=== PATIENT | female | born 1965 | race Caucasian/White ===

== ENCOUNTER 2018-10-26 13:25 | Emergency (ER) | payer BC, SELFPAY ==
--- NOTE | 2018-10-26 13:39 | NUR.NOTE ---
when pt woke up 0600 she noticed that she had swollen lips. as day progressed swelling has progressed. however swelling has remained in upper lip. pt denies any SOB, or swelling in her airway
[2018-10-26 13:40] VITALS: BP 162/98; PULSE 64; RESP 13; TEMP 36.5; O2SAT 98
[2018-10-26] MEDS: methylPREDNISolone SUCC 125 MG VIAL IVP (15:54)
[2018-10-26] MEDS: diphenhydrAMINE 50 MG/ML VIAL IVP (15:55)
--- NOTE | 2018-10-26 16:19 | W.ED.GENAD ---
Discharge Plan Disposition Patient Disposition: HOME Discharge Details Chief Complaint: GenMedical Clinical Impression: Angioedema Primary Care Provider: Jessica Norwood ED Provider: Prashant Hager Home Meds and New Rx's Prescriptions: New prednisone 20 mg tablet 40 mg PO DAILY Qty: 8 RF: 0 Continued metoprolol succinate 25 MG tablet extended release 24 hr 25 mg PO DAILY RF: 0 LAMISIL 15 GM CREAM..G. 15 gm Topical BID RF: 0 Discontinued lisinopril 10 MG tablet 10 mg PO DAILY RF: 0 Discharge Instructions Instructions: Angioedema (ED) Additional Instructions: Please stop taking lisinopril. Call your doctor tomorrow to discuss new antihypertensive medication. Take prednisone as prescribed. Take Benadryl 25 mg every 8 hours for the next three days. Please contact your primary care physician to arrange follow-up. Return to the ER immediately for any worsening or new concerning symptoms. Referrals: Jessica Norwood MD [Primary Care Provider] - Medical Decision Making 16:00 -- 53-year-old female with history of hypertension, on lisinopril, here with swelling of her upper lip. Concerned about localized angioedema. Airway is currently intact. Given fairly rapid onset today, plan to treat with Benadryl, Solu-Medrol and FFP. Plan to observe in ED and monitor for stability and improvement of condition. -- While waiting for FFP to thaw, patient reassessed and symptoms improving. Decision made to cancel FFP given clinical improvement. 18:10 -- Patient reassessed: swelling improved, patient notes subjectively has improved by 70% since arrival. Disposition decision was made weighing the risks and benefits of hospitalization versus outpatient treatment, the risk for further decompensation, and the patient's wishes. The patient was stable and requested discharge. Prior to discharge, my usual and customary return precautions were reviewed with the patient - this included follow-up instructions and reason to return to the emergency department if condition worsens, does not improve as expected, or other new concerns arise. HPI General Mode of arrival: ambulatory. Date/Time Provider Initiated Documentation: 10/26/18 14:59. Limitations to Documentation: no limitations. Information obtained by: patient. HPI Narrative: 53-year-old female with history of hypertension on lisinopril here with chief complaint of lip swelling. Patient notes that she woke up this morning and felt as though her upper lip was chapped. She went skiing and sometime this morning noticed that her lip started to swell. Swelling has persisted and worsened. Swelling is localized to her upper lip. She denies any associated swelling of her tongue, throat, or mouth. Swelling is moderate. No modifiers. No associated rash. No exposure to any allergens. Related Data Home Medications Medication Instructions Recorded Confirmed Lamisil 15 gm TOPICAL BID script NS 10/27/13 10/26/18 metoprolol succinate 25 mg PO DAILY tab-cap NS 10/27/13 10/26/18 prednisone 40 mg PO DAILY #8 tab 10/26/18 Previous Rx's Medication Instructions Recorded prednisone 40 mg PO DAILY #8 tab 10/26/18 Allergies Allergy/AdvReac Type Severity Reaction Status Date / Time No Known Allergies Allergy Unverified 10/27/13 13:27 General Stated Complaint: GenMedical LORENE: 4 Review of Systems Review of Systems All systems reviewed & are unremarkable except as noted in HPI and below PFSH Social History Smoking and Tabacco status: Current every day Exam Const General: cooperative and no acute distress HENWV Head: normocephalic and atraumatic Mouth: moist mucous membranes, lip abnormal (upper lid swollen), no muffled voice and other (tongue nl) Throat: posterior oropharynx normal Eyes Conjunctivae: normal conjunctivae Sclera: normal sclerae EOM: EOM intact bilaterally Neck Neck: trachea midline and supple Resp Auscultation: clear to auscultation bilaterally, no rales, no rhonchi and no wheezes Cardio Jugular venous pressure: no JVD Rate: regular rate and not tachycardic Rhythm: regular rhythm GI Palpation: soft, not firm, no guarding, no masses, not rigid and nontender Skin General skin exam: no rashes or lesions noted Neuro General: alert, awake, oriented x3 and tone normal Extrem General: no edema Psych Appearance: grossly normal Mental Status: mental status grossly normal Speech and Movement: speech and movement normal Course Vital Signs Temperature 36.5 C 10/26/18 13:40 Pulse 64 10/26/18 13:40 Respiratory Rate 13 10/26/18 13:40 Blood Pressure 162/98 H 10/26/18 13:40 Pulse Oximetry 98 10/26/18 13:40 Temperature 36.5 C 10/26/18 13:40 Temperature Source Skin 10/26/18 13:40 Pulse 64 10/26/18 13:40 Respiratory Rate 13 10/26/18 13:40 Respiratory Effort 10/26/18 15:59 Respiratory Depth Normal 10/26/18 15:59 Respiratory Pattern Normal 10/26/18 15:59 Blood Pressure 162/98 H 10/26/18 13:40 Blood Pressure Position Sitting 10/26/18 13:40 Pulse Oximetry 98 10/26/18 13:40 Oxygen Delivery Method Room Air 10/26/18 13:40 Oxygen Flow Rate 0 10/26/18 13:40 Pain Level 4 10/26/18 13:40
--- NOTE | 2018-10-26 16:24 | ED.GENADUL_ITS ---
Discharge Plan Disposition Patient Disposition: HOME Discharge Details Chief Complaint: GenMedical Clinical Impression: Angioedema Primary Care Provider: Jessica Norwood ED Provider: Prashant Hager Home Meds and New Rx's Prescriptions: New prednisone 20 mg tablet 40 mg PO DAILY Qty: 8 RF: 0 Continued metoprolol succinate 25 MG tablet extended release 24 hr 25 mg PO DAILY RF: 0 LAMISIL 15 GM CREAM..G. 15 gm Topical BID RF: 0 Discontinued lisinopril 10 MG tablet 10 mg PO DAILY RF: 0 Discharge Instructions Instructions: Angioedema (ED) Additional Instructions: Please stop taking lisinopril. Call your doctor tomorrow to discuss new antihypertensive medication. Take prednisone as prescribed. Take Benadryl 25 mg every 8 hours for the next three days. Please contact your primary care physician to arrange follow-up. Return to the ER immediately for any worsening or new concerning symptoms. Referrals: Jessica Norwood MD [Primary Care Provider] - Medical Decision Making 16:00 -- 53-year-old female with history of hypertension, on lisinopril, here with swelling of her upper lip. Concerned about localized angioedema. Airway is currently intact. Given fairly rapid onset today, plan to treat with Benadryl, Solu-Medrol and FFP. Plan to observe in ED and monitor for stability and improvement of condition. -- While waiting for FFP to thaw, patient reassessed and symptoms improving. Decision made to cancel FFP given clinical improvement. 18:10 -- Patient reassessed: swelling improved, patient notes subjectively has improved by 70% since arrival. Disposition decision was made weighing the risks and benefits of hospitalization versus outpatient treatment, the risk for further decompensation, and the patient's wishes. The patient was stable and requested discharge. Prior to discharge, my usual and customary return precautions were reviewed with the patient - this included follow-up instructions and reason to return to the emergency department if condi tion worsens, does not improve as expected, or other new concerns arise. HPI General Mode of arrival: ambulatory . Date/Time Provider Initiated Documentation: 10/26/18 14:59 . Limitations to Documentation: no limitations . Information obtained by: patient . HPI Narrative: 53-year-old female with history of hypertension on lisinopril here with chief complaint of lip swelling. Patient notes that she woke up this morning and felt as though her upper lip was chapped. She went skiing and sometime this morning noticed that her lip started to swell. Swelling has persisted and worsened. Swelling is localized to her upper lip. She denies any associated swelling of her tongue, throat, or mouth. Swelling is moderate. No modifiers. No associated rash. No exposure to any allergens. Related Data Home Medications Medication Instructions Recorded Confirmed Lamisil 15 gm TOPICAL BID script NS 10/27/13 10/26/18 metoprolol succinate 25 mg PO DAILY tab-cap NS 10/27/13 10/26/18 prednisone 40 mg PO DAILY #8 tab 10/26/18 Previous Rx's Medication Instructions Recorded prednisone 40 mg PO DAILY #8 tab 10/26/18 Allergies Allergy/AdvReac Type Severity Reaction Status Date / Time No Known Allergies Allergy Unverified 10/27/13 13:27 General Stated Complaint: GenMedical LORENE: 4 Review of Systems Review of Systems All systems reviewed & are unremarkable except as noted in HPI and below PFSH Social History Smoking and Tabacco status: Current every day Exam Const General: cooperative and no acute distress HENOR Head: normocephalic and atraumatic Mouth: moist mucous membranes, lip abnormal (upper lid swollen), no muffled voice and other (tongue nl) Throat: posterior oropharynx normal Eyes Conjunctivae: normal conjunctivae Sclera: normal sclerae EOM: EOM intact bilaterally Neck Neck: trachea midline and supple Resp Auscultation: clear to auscultation bilaterally, no rales, no rhonchi and no wheezes Cardio Jugular venous pressure: no JVD Rate: regular rate and not tachycardic Rhythm: regular rhythm GI Palpation: soft, not firm, no guarding, no masses, not rigid and nontender Skin General skin exam: no rashes or lesions noted Neuro General: alert, awake, oriented x3 and tone normal Extrem General: no edema Psych Appearance: grossly normal Mental Status: mental status grossly normal Speech and Movement: speech and movement normal Course Vital Signs Temperature 36.5 C 10/26/18 13:40 Pulse 64 10/26/18 13:40 Respiratory Rate 13 10/26/18 13:40 Blood Pressure 162/98 H 10/26/18 13:40 Pulse Oximetry 98 10/26/18 13:40 Temperature 36.5 C 10/26/18 13:40 Temperature Source Skin 10/26/18 13:40 Pulse 64 10/26/18 13:40 Respiratory Rate 13 10/26/18 13:40 Respiratory Effort 10/26/18 15:59 Respiratory Depth Normal 10/26/18 15:59 Respiratory Pattern Normal 10/26/18 15:59 Blood Pressure 162/98 H 10/26/18 13:40 Blood Pressure Position Sitting 10/26/18 13:40 Pulse Oximetry 98 10/26/18 13:40 Oxygen Delivery Method Room Air 10/26/18 13:40 Oxygen Flow Rate 0 10/26/18 13:40 Pain Level 4 10/26/18 13:40
--- NOTE | 2018-10-26 16:42 | NUR.NOTE ---
pt stated that her swelling is almost back to normal and she is sitting up0 smiling able to show her teeth and stick her tongue out without problems and is able to talker without problems Nursing Note:
[2018-10-26 17:07] VITALS: BP 137/77; PULSE 57; RESP 16; O2SAT 96
--- NOTE | 2018-10-26 17:32 | NUR.NOTE ---
hold placed on ffp by er doctor Nursing Note:
[2018-10-26 17:34] VITALS: BP 143/79; PULSE 56; RESP 16; O2SAT 96
[2018-10-26 18:16] VITALS: BP 139/71; PULSE 61; RESP 16; O2SAT 96
[2018-10-26 18:30] VITALS: BP 139/71; PULSE 61; RESP 16; TEMP 36.5; O2SAT 96
== END 2018-10-26 18:32 | disposition home or self-care (01) ==
PROVIDERS: Emergency Provider Student in an Organized Health Care Education/Training Program; PCP Family Medicine
DX: T78.3XXA Angioneurotic edema, initial encounter (principal); T46.4X5A Adverse effect of angiotensin-converting-enzyme inhibitors, initial encounter; I10 Essential (primary) hypertension
CPT/HCPCS: 86900; 86901; 96374; 96375; 99284; J1200; J2930

== ENCOUNTER 2018-11-11 10:25 | Outpatient (REF) | payer BC, SELFPAY ==
[2018-11-11 13:51] LABS: HCT 40.4 % (36.0-46.0); Mean Corp. HGB Concentration 34.7 g/dL (32.0-36.0); Mean Corpuscular Volume 98.1 fL (80-95); Mean Platelet Volume 11.7 fL (8.0-11.0); Platelet Count 285 x1000/uL (130-400); RBC 4.12 m/cumm (4.00-5.20); RBC Distribution Width 12.1 % (11.7-14.6); White Blood Cell Count 6.94 k/cumm (4.4-10.8)
[2018-11-11 14:13] LABS: Anion Gap 9.6 mmol/L (3-11); BUN 20 mg/dL (7-18); CO2 29.4 mmol/L (21.0-32.0); Calcium 9.9 mg/dL (8.5-10.1); Chloride 100 mmol/L (98-107); Glucose 93 mg/dL (70-100); Potassium 3.6 mmol/L (3.5-5.1); Sodium 139 mmol/L (136-145); TSH (W/Ref FT4) 0.76 uIU/mL (0.358-3.74)
== END 2018-11-11 10:45 ==
LOC: NCHCN 10:25
PROVIDERS: PCP Family Medicine; Visit Provider Family Medicine
DX: Z00.00 Encounter for general adult medical examination without abnormal findings (principal); I10 Essential (primary) hypertension
CPT/HCPCS: 80048; 85027; 84443

== ENCOUNTER 2019-03-20 01:55 | Outpatient (CLI) | payer BC, SELFPAY ==
[2019-03-20 07:44] LABS: HCT 38.5 % (36.0-46.0); HGB 13.5 g/dL (12.0-15.5); Mean Corp. HGB Concentration 35.1 g/dL (32.0-36.0); Mean Corpuscular Hemoglobin 34.1 pg (27.0-33.0); Mean Corpuscular Volume 97.2 fL (80-95); Mean Platelet Volume 10.6 fL (8.0-11.0); Platelet Count 281 x1000/uL (130-400); RBC 3.96 m/cumm (4.00-5.20); RBC Distribution Width 12.7 % (11.7-14.6); White Blood Cell Count 6.66 k/cumm (4.4-10.8)
[2019-03-20 09:20] LABS: Anion Gap 11.6 mmol/L (3-11); BUN 14 mg/dL (7-18); CO2 28.4 mmol/L (21.0-32.0); CREATININE 1.01 mg/dL (0.55-1.02); Calcium 9.5 mg/dL (8.5-10.1); Chloride 102 mmol/L (98-107); Estimated GFR 56.91 (mL/min/1.73m2); Glucose 96 mg/dL (70-100); Potassium 3.8 mmol/L (3.5-5.1); Sodium 142 mmol/L (136-145); Vitamin B12 1077 pg/mL (193-986)
[2019-03-20 09:27] LABS: Folate > 20.0 ng/mL (8.6-20.0)
== END 2019-03-20 02:15 ==
PROVIDERS: PCP Family Medicine; Visit Provider Family Medicine
DX: H53.2 Diplopia (principal); I10 Essential (primary) hypertension; D75.89 Other specified diseases of blood and blood-forming organs
CPT/HCPCS: 36415; 80048; 85027; 82607; 82746; 83519

== ENCOUNTER 2019-04-14 00:45 | Outpatient (CLI) | payer BC, SELFPAY ==
--- NOTE | 2019-04-14 13:13 | DI.MAMMO_ITS ---
SYMPTOM/DIAGNOSIS: SCREENING, Z12.31 MAMMOGRAMS: Mammograms were interpreted according to the usual protocol including computer analysis with CAD system, tomosynthesis and C view imaging. Comparison is made with exams from [id number]. The breasts are composed of scattered fibroglandular densities, breast density, Category B. No suspicious masses or suspicious microcalcifications are seen. There has been no significant change in benign appearing calcifications in the central right breast. IMPRESSION: Category 2, negative mammogram with benign findings. Yearly screening mammography is recommended. MQSA ASSESSMENT OF FINDINGS: Negative with benign findings. Category 2. Patient will receive a letter notifying them of these results. BI-RADS category B. There are scattered areas of fibroglandular density.
== END 2019-04-14 01:05 ==
PROVIDERS: PCP Family Medicine; Visit Provider Family Medicine
DX: Z12.31 Encounter for screening mammogram for malignant neoplasm of breast (principal)
CPT/HCPCS: 77063; 77067

== ENCOUNTER 2020-02-25 15:06 | Outpatient (REF) | payer BC, SELFPAY ==
[2020-02-25 18:43] LABS: HCT 39.1 % (36.0-46.0); HGB 13.9 g/dL (12.0-15.5); Mean Corp. HGB Concentration 35.5 g/dL (32.0-36.0); Mean Corpuscular Hemoglobin 34.3 pg (27.0-33.0); Mean Corpuscular Volume 96.5 fL (80-95); Mean Platelet Volume 11.2 fL (8.0-11.0); Platelet Count 320 x1000/uL (130-400); RBC 4.05 m/cumm (4.00-5.20); RBC Distribution Width 12.2 % (11.7-14.6); White Blood Cell Count 7.41 k/cumm (4.4-10.8)
[2020-02-25 18:52] LABS: ALT 36 U/L (14-59); AST 26 U/L (15-37); Albumin 4.2 g/dL (3.4-5.0); Alkaline Phosphatase 140 U/L (46-116); Anion Gap 10.5 mmol/L (3-11); BUN 15 mg/dL (7-18); Bilirubin, Total 0.5 mg/dL (0.2-1.0); CO2 27.5 mmol/L (21.0-32.0); CREATININE 0.84 mg/dL (0.55-1.02); Calcium 9.5 mg/dL (8.5-10.1); Chloride 102 mmol/L (98-107); Glucose 99 mg/dL (74-106); Potassium 3.4 mmol/L (3.5-5.1); Sodium 140 mmol/L (136-145); Total Protein 7.4 g/dL (6.4-8.2)
== END 2020-02-25 15:26 ==
LOC: NCHCN 15:06
PROVIDERS: PCP Family Medicine; Visit Provider Family Medicine
DX: I10 Essential (primary) hypertension (principal)
CPT/HCPCS: 80053; 85027

== ENCOUNTER 2020-07-16 04:24 | Outpatient (CLI) | payer BC, SELFPAY ==
--- NOTE | 2020-07-16 14:50 | DI.MAMMO_ITS ---
EXAM: MAMMO SCREENING CLINICAL HISTORY: SCREENING,Z12.31 TECHNIQUE: Mammograms were interpreted according to the usual protocol including computer analysis w [employer] CAD system, tomosynthesis and C-view imaging. COMPARISON: FINDINGS: The breasts are of moderate density with fairly symmetrical distribution of fibroglandular tissue. N o dominant mass or clumped microcalcification is identified in either breast. The current examinatio n is compared with previous examinations including April 2019 and there has been no gross interval c hange in appearance in comparison with the prior studies. IMPRESSION: No specific evidence of malignancy at this time. Routine screening examinations are suggested at yea rly intervals due to the family history of breast carcinoma. BI-RADS Category 1 - Negative Breast Density - Category B - Scattered areas of fibroglandular density
== END 2020-07-16 04:44 ==
PROVIDERS: PCP Family Medicine; Visit Provider Family Medicine
DX: Z12.31 Encounter for screening mammogram for malignant neoplasm of breast (principal)
CPT/HCPCS: 77063; 77067

== ENCOUNTER 2021-07-19 04:15 | Outpatient (CLI) | payer BC, SELFPAY ==
[2021-07-20 08:48] LABS: BUN 12 mg/dL (7-18); CREATININE 0.8 mg/dL (0.55-1.02); Calcium 9.5 mg/dL (8.5-10.1); Calculated LDL 110 mg/dL (<100); Chloride 103 mmol/L (98-107); Cholesterol 240 mg/dL (<200); Glucose 92 mg/dL (74-106); HDL Cholesterol 78 mg/dL (40-60); Potassium 3.7 mmol/L (3.5-5.1); Sodium 142 mmol/L (136-145); Triglyceride 261 mg/dL (<150)
[2021-07-20 08:49] LABS: Anion Gap 12.7 mmol/L (3-11); CO2 26.3 mmol/L (21.0-32.0)
== END 2021-07-19 04:16 | disposition home or self-care (01) ==
LOC: LBO 04:15
PROVIDERS: PCP Family Medicine; Visit Provider Family Medicine
DX: I10 Essential (primary) hypertension (principal); Z13.220 Encounter for screening for lipoid disorders; Z00.00 Encounter for general adult medical examination without abnormal findings
CPT/HCPCS: 36415; 80048; 80061

== ENCOUNTER 2021-08-11 00:13 | Outpatient (CLI) | payer BC, SELFPAY ==
--- NOTE | 2021-08-11 15:51 | DI.MAMMO_ITS ---
Exam(s) MAMMO SCREENING EXAM: MAMMO SCREENING CLINICAL HISTORY: SCREENING MAMMO FOR BREAST CANCER Z12.31. TECHNIQUE: Bilateral full field digital CC and MLO mammographic images were obtained with 3D tomosyn thesis and utilizing computer aided detection (CAD). COMPARISON: Prior mammograms dating back to 2011, the most recent being July 2020. Significant family history. Her mother was diagnosed with breast cancer in her 60s. FINDINGS: There are no new spiculated masses nor malignant appearing microcalcification groups. There is no significant architectural distortion nor skin thickening-retraction. IMPRESSION: No radiographic evidence of malignancy. BI-RADS Category 1 - Negative Breast Density - Category B - Scattered areas of fibroglandular density Breast density Category C or D implies that the patient has dense breast tissue. Dense breast tissue can make it harder to find cancer on a mammogram. Dense breast tissue is also associated with an incr eased risk of breast cancer. This information about the result of the mammogram report was provided to the patient to raise their awareness. Use this report when you speak with the patient about their risks for breast cancer, which includes their family history. At that time, you may recommend additional screening tests (Ultrasoun d or MRI) as these tests may add significant information. A negative radiographic report should not delay biopsy if a dominant or clinically suspicious mass is present. Up to ten percent of cancers are not identified on mammography. A negative report may reinforce clinical impression. Adenosis and dense breasts may obscure an underlying neoplasm. False positive reports average 6 to 10%. Patient will receive a letter notifying them of these results.
== END 2021-08-11 00:33 ==
PROVIDERS: PCP Family Medicine; Visit Provider Family Medicine
DX: Z12.31 Encounter for screening mammogram for malignant neoplasm of breast (principal)
CPT/HCPCS: 77063; 77067

== ENCOUNTER 2022-07-26 15:59 | Outpatient (CLI) | payer OTHER, SELFPAY ==
[2022-07-26 12:54] LABS: HCT 37.1 % (36.0-46.0); HGB 13.1 g/dL (11.2-15.7); MCH 34.4 pg (27.0-33.0); MCHC 35.3 % (32.0-36.0); MCV 97 fL (80-95); MPV 10.2 fL (8.0-11.0); Platelet Count 305 10^3/uL (130-400); RBC 3.81 10^6/uL (3.93-5.22); RDW 12.3 % (11.7-14.6); RDW-SD 44.5 fL; WBC 8.07 10^3/uL (4.4-10.8)
[2022-07-26 13:03] LABS: Anion Gap 7.6 mmol/L (3-11); BUN 12 mg/dL (7-18); CO2 28.4 mmol/L (21.0-32.0); CREATININE 0.7 mg/dL (0.55-1.02); Calcium 9.4 mg/dL (8.5-10.1); Chloride 102 mmol/L (98-107); Estimated GFR 99.57 (mL/min/1.73m2); Glucose 100 mg/dL (74-106); Potassium 3.1 mmol/L (3.5-5.1); Sodium 138 mmol/L (136-145)
== END 2022-07-26 16:00 | disposition home or self-care (01) ==
LOC: LBO 16:02
PROVIDERS: PCP Family Medicine; Visit Provider Family Medicine
DX: I10 Essential (primary) hypertension (principal)
CPT/HCPCS: 36415; 80048; 85027

== ENCOUNTER → 2022-08-09 01:56 | Outpatient (CLI) | payer OTHER, SELFPAY ==
--- NOTE | 2022-08-09 | DI.MAMMO_ITS ---
Exam(s) MAMMO SCREENING EXAM: MAMMO SCREENING CLINICAL HISTORY: SCREENING, Z12.31. TECHNIQUE: Bilateral full field digital CC and MLO mammographic images were obtained with 3D tomosyn thesis and utilizing computer aided detection (CAD). COMPARISON: Prior mammograms were reviewed. FINDINGS: There has been no significant change in the appearance and distribution of the fibroglandular tissue. There are no new spiculated masses nor malignant appearing microcalcification groups. There is no significant architectural distortion nor skin thickening-retraction. IMPRESSION: No radiographic evidence of malignancy. BI-RADS Category 1 - Negative Breast Density - Category B - Scattered areas of fibroglandular density Breast density Category C or D implies that the patient has dense breast tissue. Dense breast tissue can make it harder to find cancer on a mammogram. Dense breast tissue is also associated with an incr eased risk of breast cancer. This information about the result of the mammogram report was provided to the patient to raise their awareness. Use this report when you speak with the patient about their risks for breast cancer, which includes their family history. At that time, you may recommend additional screening tests (Ultrasoun d or MRI) as these tests may add significant information. A negative radiographic report should not delay biopsy if a dominant or clinically suspicious mass is present. Up to ten percent of cancers are not identified on mammography. A negative report may reinforce clinical impression. Adenosis and dense breasts may obscure an underlying neoplasm. False positive reports average 6 to 10%. Patient will receive a letter notifying them of these results.
== END ==
PROVIDERS: PCP Family Medicine; Visit Provider Family Medicine
DX: Z12.31 Encounter for screening mammogram for malignant neoplasm of breast (principal)
CPT/HCPCS: 77063; 77067

== ENCOUNTER 2022-10-09 02:54 | Outpatient (CLI) | payer OTHER, SELFPAY ==
[2022-10-09 12:37] LABS: Anion Gap 7.6 mmol/L (3-11); BUN 14 mg/dL (7-18); CO2 29.4 mmol/L (21.0-32.0); CREATININE 0.8 mg/dL (0.55-1.02); Calcium 9.3 mg/dL (8.5-10.1); Chloride 102 mmol/L (98-107); Estimated GFR 84.82 (mL/min/1.73m2); Glucose 100 mg/dL (74-106); Potassium 3.3 mmol/L (3.5-5.1); Sodium 139 mmol/L (136-145)
== END 2022-10-09 02:55 | disposition home or self-care (01) ==
LOC: LBO 02:54
PROVIDERS: PCP Family Medicine; Visit Provider Family Medicine
DX: I10 Essential (primary) hypertension (principal); E87.6 Hypokalemia
CPT/HCPCS: 36415; 80048

== ENCOUNTER 2022-11-14 03:30 | Outpatient (CLI) | payer OTHER, SELFPAY ==
[2022-11-14 13:31] LABS: Anion Gap 10.8 mmol/L (3-11); BUN 12 mg/dL (7-18); CO2 27.2 mmol/L (21.0-32.0); CREATININE 0.8 mg/dL (0.55-1.02); Calcium 10.2 mg/dL (8.5-10.1); Chloride 103 mmol/L (98-107); Estimated GFR 84.82 (mL/min/1.73m2); Glucose 110 mg/dL (74-106); Potassium 3.6 mmol/L (3.5-5.1); Sodium 141 mmol/L (136-145)
== END 2022-11-14 03:31 | disposition home or self-care (01) ==
PROVIDERS: PCP Family Medicine; Visit Provider Family Medicine
DX: I10 Essential (primary) hypertension (principal); E87.6 Hypokalemia
CPT/HCPCS: 36415; 80048

== ENCOUNTER 2023-08-22 18:06 | Outpatient (REF) | payer OTHER, SELFPAY ==
--- NOTE | 2023-08-22 15:45 | PAPFT_PTH ---
PATIENT: Vonda Estrada LOC: [facility]#:[id number] AGE/SX: 58/F ROOM: RE08/22/[address]: Jessica Norwood : 1965 BED: DIS: 08/22/2023 SPEC #: [id number] RECD: 08/23/23 13:01 STATUS: CELY REMelecio #: [id number] AARON: 08/22/23 15:[address]: Jessica Norwood [facility] Cytology RECD BY: Sprign Quiroga Tissues: 1 - CX/ENDOCX FOR PAP SMEARS Procedures: PAP THIN PREP/UVM Screening HPV DNA PROBE Comments: [id number]
[2023-08-22 20:32] LABS: HCT 39.9 % (36.0-46.0); HGB 13.8 g/dL (11.2-15.7); MCH 33.7 pg (27.0-33.0); MCHC 34.6 % (32.0-36.0); MCV 98 fL (80-95); MPV 12.3 fL (8.0-11.0); Platelet Count 299 10^3/uL (130-400); RBC 4.09 10^6/uL (3.93-5.22); RDW 12.6 % (11.7-14.6); RDW-SD 45.1 fL; WBC 6.48 10^3/uL (4.4-10.8)
[2023-08-22 20:42] LABS: INR 0.9 (0.9-1.1); Prothrombin Time 9.4 sec (9.1-11.1)
[2023-08-22 20:47] LABS: Anion Gap 11.6 mmol/L (3-11); BUN 14 mg/dL (7-18); CO2 26.4 mmol/L (21.0-32.0); CREATININE 0.7 mg/dL (0.55-1.02); Calcium 9.7 mg/dL (8.5-10.1); Chloride 103 mmol/L (98-107); Estimated GFR 98.95 (mL/min/1.73m2); Glucose 95 mg/dL (74-106); Potassium 3.5 mmol/L (3.5-5.1); Sodium 141 mmol/L (136-145)
[2023-08-22 21:14] LABS: Vitamin D 25 Total 34.3 ng/mL (30-100)
[2023-08-23 21:05] LABS: Parathyroid Hormone,Intact 45 pg/mL (19-88)
== END 2023-08-22 18:07 | disposition home or self-care (01) ==
LOC: NCHCN 18:06
PROVIDERS: PCP Family Medicine; Visit Provider Family Medicine
DX: Z00.00 Encounter for general adult medical examination without abnormal findings (principal); Z12.4 Encounter for screening for malignant neoplasm of cervix; Z11.51 Encounter for screening for human papillomavirus (HPV)
CPT/HCPCS: 80048; 82306; 85027; 88142; 83036; 83970; 85610; 87624

== ENCOUNTER → 2023-10-11 01:37 | Outpatient (CLI) | payer OTHER, SELFPAY ==
--- NOTE | 2023-10-11 | DI.MAMMO_ITS ---
Exam(s) MAMMO SCREENING EXAM: MAMMO SCREENING CLINICAL HISTORY: SCREENING,Z12.31. TECHNIQUE: Bilateral full field digital CC and MLO mammographic images were obtained with 3D tomosyn thesis and utilizing computer aided detection (CAD). COMPARISON: Prior mammograms were reviewed. FINDINGS: There has been no significant change in the appearance and distribution of the fibroglandular tissue. There are no new left breast findings. Two small benign-appearing nodular densities in the right breast are unchanged from 2017 and therefor e benign. There are no new spiculated masses nor malignant-appearing microcalcification groups in either breast . There is no significant architectural distortion nor skin thickening-retraction. IMPRESSION: No radiographic evidence of malignancy. Stable benign findings. BI-RADS Category 2 - Benign Findings Breast Density - Category B - Scattered areas of fibroglandular density Breast density Category C or D implies that the patient has dense breast tissue. Dense breast tissue can make it harder to find cancer on a mammogram. Dense breast tissue is also associated with an incr eased risk of breast cancer. This information about the result of the mammogram report was provided to the patient to raise their awareness. Use this report when you speak with the patient about their risks for breast cancer, which includes their family history. At that time, you may recommend additional screening tests (Ultrasoun d or MRI) as these tests may add significant information. A negative radiographic report should not delay biopsy if a dominant or clinically suspicious mass is present. Up to ten percent of cancers are not identified on mammography. A negative report may reinforce clinical impression. Adenosis and dense breasts may obscure an underlying neoplasm. False positive reports average 6 to 10%. Patient will receive a letter notifying them of these results.
== END ==
PROVIDERS: PCP Family Medicine; Visit Provider Family Medicine
DX: Z12.31 Encounter for screening mammogram for malignant neoplasm of breast (principal); R92.323 Mammographic fibroglandular density, bilateral breasts
CPT/HCPCS: 77063; 77067

== ENCOUNTER 2024-03-07 07:02 | Day surgery (SDC) | payer OTHER, SELFPAY ==
--- NOTE | 2024-03-06 20:59 | W.PM.DSUDISC ---
Date of service: 03/07/24 Time of Service: 08:41 Discharge Plan Disposition Patient Disposition: Home Condition: Good Discharge Details Reason For Visit: screening colonoscopy Attending Provider: Octaviano Saunders Primary Care Provider: Jessica Norwood Home Meds and New Rx's Prescriptions: Continued multivitamin Tablet 1 tab PO DAILY mecobalamin (vitamin B12) 1,000 mcg tablet,disintegrating 1,000 mcg sublingual DAILY Rx Instructions: place tablet under tongue and allow to dissolve for at least30 secs before swallowing folic acid 800 mcg tablet 0.8 mg PO DAILY chlorthalidone 25 mg tablet 25 mg PO DAILY Allergy Relief (cetirizine) 10 mg capsule 10 mg PO DAILY PRN potassium chloride 20 mEq tablet extended release 20 meq PO BID amlodipine [Norvasc] 10 mg tablet 5 mg PO DAILY Discontinued bisacodyl [Dulcolax (bisacodyl)] 5 mg tablet,delayed release (DR/EC) 5 mg PO ONCE Qty: 4 0RF Rx Instructions: Take per colonoscopy instructions provided by ordering providers office polyethylene glycol 3350 17 gram/dose powder 17 g PO ONCE Qty: 238 0RF Rx Instructions: Take per colonoscopy instructions provided by ordering providers office Discharge Instructions Instructions: Colon polyps, Diverticulosis, High-fiber diet Additional Instructions: Alvarado, we are able to complete your colonoscopy today without any issues. Your prep was excellent, and I could see everything just fine. You do have a little bit of diverticulosis. Diverticula are little weak spots in the muscular part of the colon wall. They can get infected and inflamed. When that happens, we caught diverticulitis and it is typically experienced as sharp pain usually on the left lower abdomen with an associated feeling of illness and fevers. Often times it is treated with antibiotics. Hopefully, years will never bother you. Staying well-hydrated, and having plenty of fiber in your diet is generally the best approach. I also found 1 polyp during the colonoscopy. I did remove this. Will be sent off for testing. As we talked about beforehand, at the very longest, I would recommend a 5-year interval for your screening colonoscopies. The results of the polyp report, may alter this. As soon as I have that information I will be in touch. If you need anything in the meantime, please do not hesitate to call or ask at any point. 1. If tolerated, consume a soft, low fiber diet for 1-2 days. [address] Do not drive, drink alcohol, operate machinery, make critical decisions, or do activities that require coordination or balance for 24 hours. 3. Because air was put into your colon during the procedure, expelling air from your rectum (passing gas or farting) is normal. 4. You may not have a bowel movement for 1-3 days because of the colonoscopy prep. This is normal. 5. Go directly to the emergency room if you notice any of the following: Develop chills (warm to touch), or if you have a thermometer and your temperature is above 101 Difficulty breathing or difficultly swallowing Persistent vomiting Severe abdominal pain, other than gas cramps Severe chest pain Black, tarry stools Any bleeding ? exceeding one tablespoon 6. Call your physician if the site where your intravenous was started becomes red, swollen, painful, and warm to touch. 7. Your physician has reviewed your pre-procedure medications. Please continue to take those medications as previously ordered. You will be given specific information/education regarding any changes to your medications before leaving. Stand Alone Forms: Anesthesia Discharge InstRomero, Loida Ford (DSU) Activity:: Activity as Tolerated Diet:: As Tolerated Discharge Orders Discharge Orders: Discharge Order (Routine); Ordered 03/06/24 Ordered By: Octaviano Saunders DS: Diagnosis Discharge Diagnosis (1) Encounter for screening colonoscopy: Status: Acute Asessment and Plan: Follow-up on polypectomy results
--- NOTE | 2024-03-06 21:01 | W.COLOREPORT ---
Date of service: 03/07/24 Time of Service: 08:43 Colonoscopy Report Date of procedure: 03/07/24 Pre-op diagnosis general: screening colonoscopy Post-op diagnosis procedure note: other (Sigmoid diverticulosis, colon polyp) Procedure: colonoscopy with polypectomy Surgeon: Octaviano Saunders Anesthesia Type: General:No Airway Estimated blood loss (mL): 5 Pathology: other (0.25 cm flat polyp at 20 cm) Complications: None Disposition: same day Indications: Vonda is a 58 year old woman wiht a family history of colon cancer who is here for her next screening colonoscopy Prep: Miralax/Dulcolax Procedure Start Time: 08:13 Procedure End Time: 08:40 Retraction Time: 12 Findings: Sigmoid diverticulosis, 0.25 cm flat polyp at 20 cm Procedure Description: After the induction of monitored anesthetic care, and with the patient in left lateral decubitus position, I began by performing an external anorectal exam.? Perineum and skin were normal, as was the anal verge.? There are some external hemorrhoids.? Next, I performed a digital rectal exam.? I did not appreciate any abnormal findings.? Next, I advanced a colonoscope into the rectal vault.? I performed retroflexion.? There is a fibroepithelial polyp at the base of the rectum.? Using insufflation, I then advanced the colonoscope beyond the rectal folds and into the sigmoid colon before advancing towards the cecum.? The quality of the prep was excellent.? The scope was noted to be in the cecum by identification of the ileocecal valve and appendiceal orifice.? I then began withdrawing the colonoscope using repeated irrigation as necessary for full evaluation of the colonic mucosa. Around cm from the anal verge I identified a 0.25 cm polyp. ?It appeared flat in character. ?I was able to remove this with a cold forcep polypectomy. ?I examined the site, and there was minimal bleeding. ?Once this was completed, I continued to withdraw the scope and examine the remainder of the colonic mucosa.?Once the scope was withdrawn to the level of the rectum, great care was taken to examine portions of the rectal folds.? Finally, the scope was withdrawn and the patient was brought to the same-day surgery recovery unit as the anesthetic wore off. ?The findings and instructions were shared with the patient prior to discharge. [place] Bowel Prep [place] Bowel Prep Right Colon: 3 Left Colon: 3 Transverse Colon: 3 Total Score: 9
[2024-03-07 07:24] VITALS: BP 140/84; PULSE 63; RESP 16; TEMP 36.1; O2SAT 98
[2024-03-07] MEDS: Lactated Ringers 1,000 ML 80 ML IV (07:27)
--- NOTE | 2024-03-07 07:35 | W.ANESPRE ---
General Info Date of Service Date Performed: 03/07/24 Height: 5 ft 3 in Weight: 62.1 kg Body Mass Index (BMI): 24.2 Surgical Procedure: Operation Date: 03/07/24 08:35 Proposed Procedure Side Surgeon p Anirudh Saunders MD Meds Allergies and Home Medications Allergies Allergy/AdvReac Type Severity Reaction Status Date / Time lisinopril Allergy Lip Verified 03/07/24 07:06 swelling Home Medication Medication Instructions Recorded chlorthalidone 25 mg tablet 25 mg PO DAILY 03/03/19 multivitamin 1 tab PO DAILY 04/09/20 cetirizine 10 mg capsule (Allergy 10 mg PO DAILY PRN 11/20/23 Relief (cetirizine)) potassium chloride 20 mEq 20 meq PO BID 11/20/23 tablet,extended release amlodipine 10 mg tablet (Norvasc) 5 mg PO DAILY 02/14/24 folic acid 800 mcg tablet 0.8 mg PO DAILY 02/14/24 mecobalamin (vitamin B12) 1,000 1,000 mcg sublingual DAILY 02/14/24 mcg disintegrating tablet,sublingual Current Visit Medications: Current Medications Generic Name Dose Route Start Last Admin Trade Name Freq PRN Reason Stop Dose Admin Ringer's Solution 1,000 mls @ 80 mls/hr 03/07/24 06:00 03/07/24 07:27 IV 03/07/24 23:59 80 mls/hr INFUSION LAURENT Administration IV Miscellaneous Supplies 1 each 03/07/24 06:00 Iv Access IV 03/07/24 23:59 DIRECTED LAURENT Ondansetron HCl 4 mg 03/06/24 21:04 Ondansetron 4 Mg/2 Ml Vial IVP 04/05/24 21:03 Q4H PRN PRN Nausea / Vomiting Sodium Chloride 0 ml 03/07/24 06:00 Normal Saline Flush 10 Ml Syr IV 03/07/24 23:59 PRN PRN Sodium Chloride 0 ml 03/07/24 06:00 Normal Saline 10 Ml Vial IJ 03/07/24 23:59 DIRECTED PRN Sterile Water 0 ml 03/07/24 06:00 Water,Injection,Sterile 10 Ml Vial IJ 03/07/24 23:59 DIRECTED PRN PFSH Active Problems Active Problems: Problem Status Onset Code Encounter for screening colonoscopy Z12.11 Cobalamin deficiency E53.8 CN palsy, 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 Breast cancer screening by mammogram Z12.31 Preventative health care Z00.00 Tobacco abuse Z72.0 Recurrent sinusitis J32.9 Allergic rhinitis J30.9 Angular cheilitis K13.0 H/O angioedema Z87.898 H/O allergic reaction Z88.9 Shoulder joint pain M25.519 Macrocytosis D75.89 Double vision H53.2 Medical History Medical History Epidermoid cyst of skin Hypertension Squamous cell carcinoma of nose Surgical History Surgical History Hx of colonoscopy Status post Mohs surgery for squamous cell carcinoma in situ of skin Tobacco Smoking/Tobacco Use Status: Former Tobacco Use Alcohol Alcohol Intake: current Alcohol intake frequency: a few times a month Substance Use Substance use: Never Substance use type: does not use Vital Signs and Lab Results Vital Signs Most Recent Vital Signs in EMR: Most Recent Vital Signs Temp Pulse Resp BP Pulse Ox 36.1 C L 63 16 140/84 98 03/07/24 07:24 03/07/24 07:24 03/07/24 07:24 03/07/24 07:24 03/07/24 07:24 Lab Results Blood Type / Crossmatch: No Data to Display Complete Blood Count: No Data to Display Complete Metabolic Panel: No Data to Display Liver Function Panel: No Data to Display Coagulation Panel: No Data to Display Cardiac Panel: No Data to Display Arterial Blood Gas: No Data to Display Venous Blood Gas: No Data to Display Pancreas Panel: No Data to Display Thyroid Panel: No Data to Display Infectious Disease: No Data to Display Blood Cultures: No Data to Display Toxicology Panel: No Data to Display Anesthesia Assessment and Plan Anesthesia History Personal History: No History of Anesthesia Complications Family History: No Family History of Anesthesia Complications Exercise Tolerance Exercise Tolerance: Metabolic Equivalents>4 Pertinent Negatives Pertinent Negatives: No Symptoms of GERD, No Major Cardiovascular Symptoms or Complaints, No Major Pulmonary Symptoms or Complaints and No History of CVA/TIA Cardiac & Pulmonary Exam Cardiac Exam: Normal S1/S2 Heart Sounds Pulmonary Exam: Clear Bilateral Breath Sounds Implantable Cardiac Device Does patient have a Pacemaker or an ICD?: No Airway Exam Known Difficult Airway: No Mallampati Class: 2 Mouth Opening: Normal (> 3cm) Thyromental Distance: Greater than 3 cm Neck Range of Motion: Full ROM Neck Circumference: Normal Teeth Condition: Normal Dentition ASA Classification ASA Score: ASA 2 Emergency Case?: No NPO Status NPO Status: NPO Clears >2 hours, Solids >8 hours Anesthesia Plan Resuscitation Status: Full Code Anesthesia Technique: General Anesthesia Airway Planned: Natural Airway Monitors Used: Standard Monitors Preoperative Comments:: 58 y/o female with history of HTN, environmental allergies presents for colonoscopy screening pre-op. Her last screening was in 2013, which was remarkable for hyperplastic polyp. She has a family history of colon cancer in her mother
[2024-03-07 07:45] VITALS: BMI 24.2
--- NOTE | 2024-03-07 08:40 | BOWEL_PTH ---
PATIENT: Vonda Estrada LOC: [facility] U#:[id number] AGE/SX: 58/F ROOM: RE03/07/[address]: Octaviano Saunders MD : [id number] BED: DIS: 03/07/2024 SPEC #: [id number] RECD: 03/07/24 12:46 STATUS: CEYL REQ #: [id number] AARON: 03/07/24 08:[address]: Octaviano Saunders DEPT: Surgical Specimen RECD BY: Spring Quiroga ENTERED: 03/07/24 12:47 SP TYPE: Bowel OTHR DR: Jessica Norwood Tissues: 1 - BIOPSY BOWEL Procedures: GROSS AND MICRO LEVEL 4 Comments: [id number]
[2024-03-07 08:41] VITALS: BP 103/72; PULSE 64; RESP 16; TEMP 36.4; O2SAT 98
[2024-03-07 09:08] VITALS: BP 126/80; PULSE 58; RESP 16; TEMP 36.4; O2SAT 98
--- NOTE | 2024-03-07 09:08 | W.ANESPOSTOP ---
Postoperative Evaluation Date, Time and Location Date Performed: 03/07/24 Time Performed: 08:48 Patient Location: Day Surgery Unit Vital Signs Most Recent Imported Vital Signs: Most Recent Vital Signs Temp Pulse Resp BP Pulse Ox 36.4 C L 64 16 103/72 98 03/07/24 08:41 03/07/24 08:41 03/07/24 08:41 03/07/24 08:41 03/07/24 08:41 Pain Score Most Recent Pain Score: Most Recent Pain Score Pain Level 0 03/07/24 08:41 Assessment Mental Status: Awake (Alert & Oriented to Patient Baseline) Airway and Respiratory Function: Patent airway with normal (patient baseline) respiratory exam Cardiovascular Function: Hemodynamically Stable Hydration Status: Adequately Hydrated Nausea & Vomiting: No Nausea or Vomiting Pain: Pt. Denies Any Pain Peripheral Nerve Block: Patient did not receive a nerve block
== END 2024-03-07 09:28 | disposition home or self-care (01) ==
LOC: SUR 07:02
PROVIDERS: PCP Family Medicine; Visit Provider Surgery
PROC: 0DJD8ZZ Inspection of Lower Intestinal Tract, Via Natural or Artificial Opening Endoscopic (ICD-10-PCS; CPT 45378; principal; 2024-03-07 08:30)
DX: Z12.11 Encounter for screening for malignant neoplasm of colon (principal); Z80.0 Family history of malignant neoplasm of digestive organs; I10 Essential (primary) hypertension; K64.8 Other hemorrhoids; K63.5 Polyp of colon; K63.89 Other specified diseases of intestine
CPT/HCPCS: 45380; 88305; J2704

== ENCOUNTER 2024-11-12 03:41 | Outpatient (CLI) | payer OTHER, SELFPAY ==
[2024-11-12 08:56] LABS: Anion Gap 7.8 mmol/L (3-11); BUN 9 mg/dL (7-18); CO2 29.2 mmol/L (21.0-32.0); CREATININE 0.9 mg/dL (0.55-1.02); Calcium 10.1 mg/dL (8.5-10.1); Chloride 104 mmol/L (98-107); Estimated GFR 72.73 (mL/min/1.73m2); Glucose 109 mg/dL (74-106); Potassium 3.8 mmol/L (3.5-5.1); Sodium 141 mmol/L (136-145)
== END 2024-11-12 03:42 | disposition home or self-care (01) ==
LOC: LBO 03:41
PROVIDERS: PCP Family Medicine; Visit Provider Family Medicine
DX: I10 Essential (primary) hypertension (principal)
CPT/HCPCS: 36415; 80048

== ENCOUNTER 2024-11-27 00:57 | Outpatient (CLI) | payer OTHER, SELFPAY ==
--- NOTE | 2024-11-27 07:42 | DI.MAMMO_ITS ---
Exam(s) MAMMO SCREENING EXAM: MAMMO SCREENING CLINICAL HISTORY: SCREENING, Z12.31 TECHNIQUE: Mammograms were interpreted according to the usual protocol including computer analysis w [employer] CAD system, tomosynthesis and C-view imaging. COMPARISON: 2015 through 2023 FINDINGS: The breasts are composed of scattered fibroglandular densities, Breast Density category B. No suspicious masses or suspicious microcalcifications are seen. No skin thickening or abnormal axillary lymph nodes are seen. There has been no significant change from prior exams. IMPRESSION: BI-RADS Category 1, Negative mammogram Yearly screening mammography is recommended. Breast Density - Category B, scattered fibroglandular densities. A negative radiographic report should not delay biopsy if a dominant or clinically suspicious mass is present. Up to ten percent of cancers are not identified on mammography. A negative report may reinforce clinical impression. Adenosis and dense breasts may obscure an underlying neoplasm. False positive reports average 6 to 10%. Patient will receive a letter notifying them of these results.
== END 2024-11-27 01:17 ==
LOC: DI 00:57
PROVIDERS: PCP Family Medicine; Visit Provider Family Medicine
DX: Z12.31 Encounter for screening mammogram for malignant neoplasm of breast (principal); R92.2 Inconclusive mammogram; R92.323 Mammographic fibroglandular density, bilateral breasts
CPT/HCPCS: 77063; 77067